=== PATIENT | male | born 1945 | race Caucasian/White ===

== ENCOUNTER 2017-11-15 08:36 | Emergency (ER) | payer OTHER ==
[2017-11-15 08:44] VITALS: RESP 18; TEMP 97.9; O2SAT 90
--- NOTE | 2017-11-15 08:58 | EDPHY ---
H & P Stated Complaint: dysuria/hematuria since HPI/ROS: CHIEF COMPLAINT: "I started getting spots of blood in my urine" HISTORY OF PRESENT ILLNESS: The patient is a 72 y/o male arriving with his complaining of dysuria and hematuria for the last 1-2 days. he notices "spots of blood" in his urine. By Friday he developed associated dysuria and worsening hematuria. Pain was severe enough that he was reluctant to urinate. This morning he woke up to pee and says, "it was like a wall broke and I could really pee comfortably." He still had visible blood in his urine. He denies abdominal pain, fever, vomiting, flank pain, leg swelling, abnormal bowel movements or history of issues with BPH. He had similar symptoms 2 years ago and was diagnosed with a UTI that resolved with antibiotics. REVIEW OF SYSTEMS: A ten point review of systems was performed and is negative with the exception of the items mentioned in the HPI. Past medical history: 1. COPD uses O2 2. Hypertension 3. Gout 4. 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 Spinal fusion 2010 2. Neck surgery Family history: Noncontributory Social history: Former smoker, quit 16 years ago. at bedside. [employer]. Retired a couple years ago from [employer]. Drinks a couple cocktails daily. PCP: Dr. Dionna Mckay in [place] General Appearance: Alert. Vital signs reviewed. Blood pressure 132/73. Pulse ox 90% on room air. Eyes: Pupils equal and round, no conjunctival injection, no discharge. Anicteric. ENT, Mouth: Mucous membranes are moist, no oropharyngeal erythema or edema. Neck: No lymphadenopathy, supple. Respiratory: Lungs are distant but clear to auscultation; no wheezes, rales, or rhonchi. Cardiovascular: Regular rate and rhythm; no murmur, rub, or gallop. Gastrointestinal: Abdomen is soft and nontender, no masses or organomegaly, bowel sounds normal. Skin: Warm and dry, no rashes on exposed skin, normal color. Back: Nontender to palpation over the thoracolumbar spine. No CVAT. Extremities: No lower extremity edema, no calf tenderness or swelling. Neurological: Alert and oriented. Moving all four extremities easily and equally. Psychiatric: Normal affect. - Personal History Current Tetanus/Diphtheria Vaccine: Yes - Medical/Surgical History Hx Asthma: No Hx Chronic Respiratory Disease: Yes Hx Diabetes: No Hx Cardiac Disease: No Hx Renal Disease: No Hx Cirrhosis: No Hx Alcoholism: No Hx HIV/AIDS: No Hx Splenectomy or Spleen Trauma: No Other PMH: copd/htn/gout/back surgery/ - Social History Smoking Status: Never smoked Constitutional: Initial Vital Signs Temperature (C) 36.6 C 11/15/17 08:41 Heart Rate 70 11/15/17 08:41 Respiratory Rate 18 11/15/17 08:41 Blood Pressure 132/73 H 11/15/17 08:41 O2 Sat (%) 90 L 11/15/17 08:41 O2 Delivery Mode Nasal Cannula O2 (L/minute) 4 Allergies/Adverse Reactions: morphine Allergy (Verified 11/15/17 08:39) Home Medications: Medication Instructions Recorded Allopurinol 11/15/17 Atorvastatin Calcium 11/15/17 GABAPENTIN 11/15/17 Valsartan-Hctz 160-12.5 mg Tab 11/15/17 buPROPion 11/15/17 Medical Decision Making ED Course/Re-evaluation: This is a 72 y/o male who presents with a 2-day history of hematuria with associated dysuria for the last day leading to some apparent urinary retention due to pain. Similar symptoms previously were treated successfully as a UTI. No history of prostate issues. His exam is unremarkable and he is afebrile here. Plan for UA and bladder scan. UA shows macroscopic and microscopic RBCs and trace bacteria (not indicative of UTI), confirming patient's hematuria. He only had 43mL of urine on bladder scan , so I feel he is safe to return home at this time and follow up with urology early next week. No abdominal distension or tenderness on exam today. I do not recommend antibiotics at this time. I gave strict return precautions if he develops urinary retention. He agrees with plan for discharge. Differential Diagnosis: I considered a differential diagnosis that includes but is not limited to pyelonephritis, prostatitis, urinary tract infection, urinary retention, and malignancy. Departure - Departure Disposition: Home, Routine, Self-Care Clinical Impression: Dysuria Hematuria Qualifiers: Hematuria type: gross Qualified Code(s): R31.0 - Gross hematuria Condition: Good Instructions: Hematuria (ED), Dysuria (ED) Additional Instructions: 1. Please follow up with a urologist on Friday. you have been referred to Dr. Sosa, but you can also contact your primary care provider for a referral. 2. You must return to the ED if you are unable to urinate or develop other worsening of condition. Referrals: DIONNA MCKAY [Primary Care Provider] - As per Instructions Moustapha Sosa MD [Medical Doctor] - As per Instructions Report Scribed for: Jenni Rogers Report Scribed by: Joann Mcghee Date of Report: 11/15/17 Time of Report: 10:43 Physician Review and Approval Statement: 11/15/17 08:58 Portions of this note were transcribed by the medical videographer. I, Dr. Jenni Rogers, personally performed the history, physical exam, and medical decision- making; and confirmed the accuracy of the information in the transcribed note.
[2017-11-15 10:48] VITALS: BP 130/72; PULSE 72
== END 2017-11-15 10:48 | disposition home or self-care (01) ==
DX: R30.0 Dysuria (principal); R31.0 Gross hematuria; J44.9 Chronic obstructive pulmonary disease, unspecified; I10 Essential (primary) hypertension; Z87.891 Personal history of nicotine dependence